=== PATIENT | male | born 1990 | race Caucasian/White ===

== ENCOUNTER 2019-04-08 14:28 | Inpatient (IN) | payer MEDICAID ==
[~2019-04-08] VITALS: Ht 170.2 cm; Wt 66.2 kg
--- NOTE | 2019-04-08 14:31 | NUR ---
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
[2019-04-08 14:56] LABS: BASOPHILS % (AUTO) 0.6 % (0.0-2.0); EOSINOPHILS % (AUTO) 0.1 % (0.0-6.0); HEMATOCRIT 47 % (39-51); LYMPHOCYTES % (AUTO) 28.4 % (20.0-44.0); MEAN CORPUSCULAR HGB CONC 34 g/dl (31.0-36.0); MEAN CORPUSCULAR VOLUME 92 fL (80-96); MONOCYTES # (AUTO) 0.4 /CMM (0.1-1.30); MONOCYTES % (AUTO) 5.4 % (2.0-12.0); NEUTROPHILS # (AUTO) 4.6 /CMM (1.8-8.9); NEUTROPHILS % (AUTO) 65.5 % (43.0-81.0); PLATELET COUNT (AUTO) 399 /CMM (150-450); RED BLOOD CELL COUNT(AUTO) 5.12 MIL/uL (4.5-6.0)
[2019-04-08] MEDS ORDERED: IV NS 0.9% 1,000 ML BAG IV ONE (15:00)
[2019-04-08 15:06] LABS: CALCIUM, SERUM 9.7 mg/dL (8.5-10.1); CARBON DIOXIDE 25 mmol/L (21-32); CHLORIDE 103 mmol/L (98-107); CREATININE 0.9 mg/dL (0.6-1.3); GLUCOSE 145 mg/dL (74-106); POTASSIUM 3.4 mmol/L (3.5-5.1); SODIUM SERUM 139 mmol/L (136-145); UREA NITROGEN, BLOOD 11 mg/dL (7-18)
[2019-04-08 15:07] LABS: MAGNESIUM 2.1 mg/dL (1.8-2.4)
[2019-04-08 15:13] LABS: ALANINE AMINOTRANSFERASE 42 U/L (12-78); ALBUMIN 4.6 g/dL (3.4-5.0); ALKALINE PHOSPHATASE 126 U/L (46-116); ASPARTATE AMINOTRANSFERASE 61 U/L (15-37); BILIRUBIN,DIRECT 0.1 mg/dL (0.0-0.2); BILIRUBIN,TOTAL 0.8 mg/dL (0.2-1.0); TOTAL PROTEIN, SERUM 8.7 g/dL (6.4-8.2)
[2019-04-08] MEDS ORDERED: POTASSIUM CHLORIDE 20 MEQ TAB.PRT.SR PO ONE ×2 (16:00→16:26)
--- NOTE | 2019-04-08 16:18 | NUR ---
CALLED [facility]. PROCESS CONTROL TECH WAS PAGED
[2019-04-08] MEDS ORDERED: AMOX500T2 PO (16:44)
[2019-04-08] MEDS ORDERED: IV NS 0.9% 1,000 ML IV PRN (17:01)
--- NOTE | 2019-04-08 17:13 | NUR ---
CALLED [facility] FOR BED
[2019-04-08] MEDS ORDERED: FOLIC ACID 1 MG TABLET PO ONE (17:30)
[2019-04-08] MEDS ORDERED: ONDANSETRON HCL/PF 4 MG/2 ML VIAL IVP PRN (17:30)
[2019-04-08] MEDS ORDERED: Z GUARD REMEDY 2 OZ OINT TP PRN (17:30)
[2019-04-08] MEDS ORDERED: MAGNESIUM HYDROXIDE 30 ML UDC PO PRN (17:30)
[2019-04-08] MEDS ORDERED: MAG HYDROX/AL HYDROX/SIMETH 30 ML UDC PO PRN (17:30)
[2019-04-08] MEDS ORDERED: LORAZEPAM INJ 2 MG/ML VIAL IV PRN (17:30)
[2019-04-08] MEDS ORDERED: ACETAMINOPHEN 325 MG TABLET PO PRN (17:30)
[2019-04-08 17:33] VITALS: BP 135/85
--- NOTE | 2019-04-08 17:38 | NUR ---
report given to galindo brennan for jana pt will be transported to 3rd floor
--- NOTE | 2019-04-08 17:39 | NUR ---
UNABLE TO DEPART PATIENT FROM [facility]
--- NOTE | 2019-04-08 17:45 | NUR ---
RECEIVED PATIENT AWAKE AND ALERT /ORIENTED X4 . PATIENT ARRIVED VIA WHEELCHAIR . PATIENT AMBULATORY AND STEADY. PATIENT REFUSING TO BE ASSESSED, REFUSED TO TAKE VS AND REFUSES TO BE ADMITTED. PATIENT WANTS TO TALK TO CHARGE NURSE. PATIENT STATES HE CANNOT STAY HE NEEDS TO GO. EDUCATION PROVIDED, BENEFITS EXPLAINED AND PATIENT STILL REFUSING TO BE ADMITTED. RECOMMENDATION TO SEE PCP SOON POSSIBLE PROVIDED. PATIENT SIGHED AMA FORM. IV LINE REMOVED AND WRIST BAND REMOVED.
[2019-04-08] MEDS ORDERED: THIAMINE HCL 100 MG TABLET PO ONE (18:02)
[2019-04-09] MEDS ORDERED: PANTOPRAZOLE 40 MG TABLET.DR PO SCH (07:30)
[2019-04-09] MEDS ORDERED: THIAMINE HCL 100 MG TABLET PO SCH (09:00)
[2019-04-09] MEDS ORDERED: MULTIPLE VIT (LYCOPENE/FA/MV,CA,IRON,MIN/LUT)1 TAB PO SCH (09:00)
[2019-04-09] MEDS ORDERED: FOLIC ACID 1 MG TABLET PO SCH (09:00)
[2019-04-09] MEDS ORDERED: AMOXICILLIN PO SCH (09:00)
== END 2019-04-08 17:51 | disposition left against medical advice (07) | DRG 351 ==
LOC: ER 14:29 → MED 17:51
PROVIDERS: ADMIT Registered Nurse; ATTEND Registered Nurse
DX: M62.82 Rhabdomyolysis (principal); E87.6 Hypokalemia; F10.129 Alcohol abuse with intoxication, unspecified; Y90.8 Blood alcohol level of 240 mg/100 ml or more; R74.0 Nonspecific elevation of levels of transaminase and lactic acid dehydrogenase [LDH]; R73.9 Hyperglycemia, unspecified
CPT/HCPCS: 36415; 71045-TC; 80048-TC; 80076-TC; 80305; 82550-TC; 82962-TC; 83735-TC; 84484-TC; 85025-TC; 85378-TC; 87081-TC; G0378; G0480; J7030

== ENCOUNTER 2019-04-09 22:47 | Emergency (ER) | payer MEDICAID ==
[~2019-04-09] VITALS: Ht 170.2 cm; Wt 66.2 kg
--- NOTE | 2019-04-09 23:40 | NUR ---
PT BIB FATHER TO ER C/O DIZZINESS. PT STATE THAT HE DRANK A FULL BOTTLE OF VODKA. PT DENIES BEING IN ANY PAIN. PT'S FACE IS FLUSHED. AAOX4. NO SOB. BREATHING EVEN AND UNLABORED. NOT IN ANY DISTRESS. CONNECTED TO MONITOR.
[2019-04-10] MEDS ORDERED: IV NS 0.9% 1,000 ML BAG IV ONE
[2019-04-10 00:07] LABS: BASOPHILS % (AUTO) 0.5 % (0.0-2.0); EOSINOPHILS % (AUTO) 0.8 % (0.0-6.0); HEMATOCRIT 48 % (39-51); HEMOGLOBIN 16.4 g/dL (13.5-17.5); LYMPHOCYTES # (AUTO) 2.7 /CMM (0.8-4.8); LYMPHOCYTES % (AUTO) 37.7 % (20.0-44.0); MEAN CORPUSCULAR HGB CONC 34 g/dl (31.0-36.0); MEAN CORPUSCULAR VOLUME 93 fL (80-96); MONOCYTES # (AUTO) 0.3 /CMM (0.1-1.30); MONOCYTES % (AUTO) 4.7 % (2.0-12.0); NEUTROPHILS % (AUTO) 56.3 % (43.0-81.0); PLATELET COUNT (AUTO) 350 /CMM (150-450); RED BLOOD CELL COUNT(AUTO) 5.16 MIL/uL (4.5-6.0); WHITE BLOOD COUNT (AUTO) 7.1 K/uL (4.3-11.0)
[2019-04-10 00:16] LABS: CALCIUM, SERUM 9.3 mg/dL (8.5-10.1); CARBON DIOXIDE 24 mmol/L (21-32); CHLORIDE 101 mmol/L (98-107); CREATININE 0.8 mg/dL (0.6-1.3); GLUCOSE 91 mg/dL (74-106); POTASSIUM 3.9 mmol/L (3.5-5.1); SODIUM SERUM 138 mmol/L (136-145); UREA NITROGEN, BLOOD 8 mg/dL (7-18)
[2019-04-10 00:30] LABS: B-TYPE NATRIURETIC PEPTIDE < 5 PG/ML (0-125)
--- NOTE | 2019-04-10 01:38 | NUR ---
FATHER LEFT PHONE NUMBER [phone]
[2019-04-10 05:13] VITALS: BP 134/81
--- NOTE | 2019-04-10 05:13 | NUR ---
IV removed. Catheter intact and site benign. Pressure and 4x4 applied to site. No bleeding noted.Patient discharged to home in stable condition. Written and verbal after care instructions given. Patient verbalizes understanding of instruction.
== END 2019-04-10 05:14 | disposition home or self-care (01) ==
LOC: ER 22:53
DX: F10.20 Alcohol dependence, uncomplicated (principal); Y90.9 Presence of alcohol in blood, level not specified; Z79.899 Other long term (current) drug therapy
CPT/HCPCS: 36415 ×2; 71045; 80048; 82550; 83880; 84484; 85025; 93005 ×2; 99284; J7030 ×2

== ENCOUNTER 2019-12-21 01:26 | Emergency (ER) | payer SELFPAY ==
[~2019-12-21] VITALS: Ht 170.2 cm; Wt 63.5 kg
--- NOTE | 2019-12-21 01:26 | NUR ---
Bb father for possible alcohol withdrawal. Per father, pt is chronic alcoholic and last drink was last night. Pt appears shakey. Pt alert and oriented. pt to er bed 12 and connected to monitor. will cont to monitor pt./
[2019-12-21] MEDS ORDERED: ONDANSETRON HCL/PF 4 MG/2 ML VIAL ONE (01:51)
[2019-12-21] MEDS ORDERED: LORAZEPAM INJ 2 MG/ML VIAL ONE ×2 (01:52→02:13)
[2019-12-21] MEDS ORDERED: LORAZEPAM INJ 2 MG/ML VIAL IV ONE ×2 (02:00→02:30)
[2019-12-21] MEDS ORDERED: ONDANSETRON HCL/PF 4 MG/2 ML VIAL IVP ONE (02:00)
[2019-12-21] MEDS ORDERED: IV NS 0.9% 1,000 ML BAG IV ONE (02:00)
--- NOTE | 2019-12-21 03:15 | NUR ---
pt sleeping in [facility]. no signs of distress noted. Pt vitals signs stable. Will cont to monitor pt.
--- NOTE | 2019-12-21 06:07 | NUR ---
PT RESTING COMFORTABLY IN BED. VSS. NO ACUTE DISTRESS NOTED. SITTER AT BEDSIDE FOR SAFETY
--- NOTE | 2019-12-21 06:28 | NUR ---
TRIED CALLING PATIENT'S FATHER, PHONE CALL WENT STRAIGHT TO [employer]IC[employer] WITH MULTIPLE ATTEMPTS.
--- NOTE | 2019-12-21 07:40 | NUR ---
Pt a/ox4 . ambulatory with steady gait. Pt insisting that he be discharged home. Attempted to call father to slate picker patient, no answer. Patient discharged to home in stable condition. Written and verbal after care instructions given. Patient verbalizes understanding of instruction.
[2019-12-21 07:41] VITALS: BP 134/98
== END 2019-12-21 07:42 | disposition home or self-care (01) ==
LOC: ER 01:28
DX: F10.231 Alcohol dependence with withdrawal delirium (principal); R00.0 Tachycardia, unspecified; Y90.9 Presence of alcohol in blood, level not specified
CPT/HCPCS: 82962; 93005; 96374; 96375; 99284; J2060 ×2; J2405